=== PATIENT | female | born 1950 | race Caucasian/White ===

== ENCOUNTER 2017-01-29 15:41 | Emergency (ER) | payer MEDICARE, OTHER ==
--- NOTE | ~2017-01-29 | CT2 ---
[facility] A Service of [facility] & [facility] RADIOLOGY TEXT RESULTS PATIENT: YUMIKO BARNES LOCATION: [facility] : 48 UNIT #: [id number] AGE: [address]: Clark Laurent MD SEX: F ORDER DR: [id number] [facility] [address] [place], [place] [address] [id number] MR#: [id number] #: [id number] NAME: YUMIKO BARNES : 1950 SEX: F STUDY DATE/TIME: 01/29/2017 17:59 UNIT: [facility] ROOM: STUDY DESCRIPTION: CT Abd and Pelv W Cont Attending Physician: Clark Laurent M.D. Ordering Physician: Clark Laurent M.D. Primary Care Physician: Kelly Phelps M.D. MEDICAL IMAGING REPORT This report is preliminary unless electronic signature is present CT abdomen/pelvis with contrast Indication: Right groin pain since last night Findings: Lung bases are clear. Fatty infiltration of the liver. Gallbladder unremarkable. Spleen unremarkable. Kidneys unremarkable. Adrenal glands and pancreas are unremarkable. PELVIS: Postop changes of the sigmoid. Scattered diverticula within the colon. Appendix is nonvisualized and may be surgically absent. No free fluid. No inflammatory stranding. Bone windows are unremarkable. IMPRESSION No acute intraabdominal or pelvic abnormality. No CT findings to explain the patient's symptoms. Dictated by... Jayson Mejía M.D. THIS IS AN ELECTRONICALLY VERIFIED REPORT Jayson Mejía M.D. at 01/31/2017 7:30 AM ARS/taz TD: 01/30/2017 00:02 JOB #: [id number] MEDICAL IMAGING REPORT Page 1 of 1 COPY
[~2017-01-29 15:41] MED LIST: ASPIRIN81 M1 PO; BACTRIM DS TABL1 TAB PO; BENEFIBER PO; CALCIUM 600 +1 EAC3 PO; CALTRATE-600/VI1 TA2 PO; CERTAGEN PO; CHOLESTEROL MED PO; FIBER CAPS; HCTZ PO; HYDROCHLOROTH12.5 MG PO; IBUPROFEN PO; IBUPROFEN600 MG PO; LEG CRAMPS PO; LORTAB 7.5-5001 TAB PO; MIRALAX17 G1; MIRALAX17 G1 PO; MOTRIN20 MG/ML PO; MULTI VITAMIN1 EACH PO; MULTIPLE VITAMI1 T12 PO; OMEGA 3 500 SO1 EACH; OMEGA 3-6-9 11200 MG PO; OMEPRAZOLE20 M2 PO; PANTOPRAZOLE SO40 MG; POTASSIUM GLUCO99 MG PO; PRAVACHOL PO; PRILOSEC PO; STOOL SOFTENER100 M1 PO; TALADINE150 MG PO; VICODIN 5/500 T1 TAB PO; VITAMIN B12 DAILY; VITAMIN C PO
[2017-01-29 16:40] LABS: URINE SOURCE CLEAN CATCH
[2017-01-29 16:43] LABS: BASOPHIL# 0.1 X10e3 (0-0.3); BASOPHIL% 0.8 % (0-2.5); EOSINOPHIL# 0.1 X10e3 (0-0.7); EOSINOPHIL% 1.5 % (0.0-7.0); HEMOGLOBIN 14.7 gm/dL (12.0-16.0); LYMPHOCYTE# 3.1 X10e3 (1.0-3.5); LYMPHOCYTE% 32.5 % (17.0-45.0); MEAN CORPUSCULAR HEMOGLOBIN 30.1 PG (28-34); MEAN CORPUSCULAR HGB CONC 33.5 g/dL (30-36); MEAN PLATELET VOLUME 9.6 FL (6.5-11.5); MONOCYTE# 0.5 X10e3 (0-1.0); MONOCYTE% 5.7 % (3.0-12.0); NEUTROPHIL# 5.7 X10e3 (1.5-7.1); NEUTROPHIL% 59.5 % (40-75); PLATELET COUNT 183 X10e3 (140-420); RED BLOOD COUNT 4.89 X10e (3.90-5.30); RED CELL DISTRIBUTION WIDTH 12.8 % (11.0-15.5); WHITE BLOOD COUNT 9.5 X10e3 (4.0-10.5)
[2017-01-29 16:44] LABS: URINE APPEARANCE CLOUDY; URINE BILIRUBIN NEG (NEG); URINE BLOOD NEG (NEG); URINE COLOR YELLOW; URINE GLUCOSE NEG (NEG); URINE KETONE TRACE (NEG); URINE LEUKOCYTE ESTERASE NEG (NEG); URINE NITRATE NEG (NEG); URINE PH 5.5 (5-8); URINE PROTEIN NEG (NEG); URINE SPECIFIC GRAVITY 1.026 (1.003-1.035)
[2017-01-29 16:45] LABS: DIFF IND NO
[2017-01-29 16:56] LABS: CULTURE INDICATED? NO
[2017-01-29 17:12] LABS: ALBUMIN SERUM 4.3 g/dL (3.5-5.0); BILIRUBIN, DIRECT 0.1 mg/dL (0.0-0.2); BILIRUBIN,INDIRECT 0.5 mg/dL (0.0-0.9); BILIRUBIN,TOTAL 0.6 mg/dL (0.2-2.0); CALCIUM SERUM 9.3 mg/dL (8.4-10.2); GLOM FILT RATE Estimated 58.3 mL/min (>60); POTASSIUM 3.7 mmol/L (3.5-5.1)
== END 2017-01-29 18:44 | disposition home or self-care (01) ==
LOC: CED 15:41
PROVIDERS: Emergency Medicine
DX: R10.30 Lower abdominal pain, unspecified (principal); I10 Essential (primary) hypertension; Z88.5 Allergy status to narcotic agent; Z79.899 Other long term (current) drug therapy
CPT/HCPCS: 36415; 74177; 80048; 80076; 81003; 85025; 96365; 96374; 99284; J1885; Q9967